=== PATIENT | male | born 1985 | race African-American/Black ===

== ENCOUNTER 2019-05-18 11:18 | Emergency (ER) | payer SELFPAY ==
[~2019-05-18] VITALS: Ht 182.9 cm; Wt 140.0 kg
[2019-05-18] MEDS ORDERED: KETOROLAC 30MG/ML VIAL IV ONE (11:45)
[2019-05-18] MEDS ORDERED: ONDANSETRON HCL 4MG/2ML INJ IV ONE (11:45)
[2019-05-18 12:02] LABS: CLARITY URINE CLEAR (CLEAR); COLOR URINE YELLOW (YELLOW); KETONES URINE 1+ (NEGATIVE); LEUKOCYTE ESTERASE URINE NEGATIVE (NEGATIVE); NITRITE URINE NEGATIVE (NEGATIVE); OCCULT BLOOD URINE 2+ (NEGATIVE); PROTEIN URINE 2+ (NEGATIVE); SPECIFIC GRAVITY URINE 1.028 (1.005-1.030)
[2019-05-18 12:11] LABS: BASOPHILS % 0.9 % (0.0-2.0); EOSINOPHILS % 3.1 % (0.0-5.0); HEMATOCRIT. 43.6 % (42.0-52.0); HEMOGLOBIN. 14.7 g/dL (14.0-18.0); LYMPHOCYTES % 56.1 % (20.0-50.0); MEAN CORPUSCULAR HEMOGLOBIN 29.2 pg (28.0-32.0); MEAN CORPUSCULAR VOLUME 86.7 fL (80.0-94.0); MEAN PLATELET VOLUME 9.6 fl (7.4-10.4); NEUTROPHILS % 33.9 % (40.0-76.0); PLATELET 242 x1000/uL (130-400); RED BLOOD CELL COUNT 5.03 mill/uL (4.7-6.1); RED CELL DISTRIBUTION WIDTH 13.9 % (11.6-14.6)
[2019-05-18 12:17] LABS: CHLORIDE 106 mEq/L (98-107)
[2019-05-18 13:34] VITALS: BP 150/85
== END 2019-05-18 13:36 | disposition left against medical advice (07) ==
LOC: ER 11:18
DX: R10.9 Unspecified abdominal pain (principal); R82.90 Unspecified abnormal findings in urine
CPT/HCPCS: 36415; 80053; 81003; 82962; 85025; 87086; 96374; 96375; 99283; J1885; J2405; Z7610